=== PATIENT | male | born 2000 | race African-American/Black ===

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

== ENCOUNTER 2024-07-10 23:20 | Emergency (ER) | payer MEDICAID ==
[~2024-07-10] VITALS: Ht 160 cm; Wt 69.0 kg
[2024-07-10 23:41] VITALS: BP 131/69; PULSE 53; RESP 16; TEMP 36.9; O2SAT 100
== END 2024-07-11 04:07 | disposition left against medical advice (07) ==
LOC: ER 23:20
DX: M54.9 Dorsalgia, unspecified (principal); Z53.21 Procedure and treatment not carried out due to patient leaving prior to being seen by health care provider

== ENCOUNTER 2024-11-02 11:25 | Emergency (ER) | payer MEDICAID ==
[~2024-11-02] VITALS: Ht 172.7 cm; Wt 73.0 kg
[2024-11-02 11:31] VITALS: O2SAT 100
[2024-11-02] MEDS ORDERED: SODIUM CHLORIDE 0.9% 1,000 ML IV ONE (12:00)
[2024-11-02] MEDS: DIPHENHYDRAMINE 50MG/ML VIAL IM STA (12:44)
[2024-11-02] MEDS: ZIPRASIDONE MESYLATE 20MG/VIAL IM STA (12:51)
[2024-11-02 13:34] VITALS: BP 126/68; PULSE 96; RESP 18; TEMP 36.9; O2SAT 99
== END 2024-11-02 12:45 | disposition left against medical advice (07) ==
LOC: ER 11:25
DX: F91.8 Other conduct disorders (principal); R07.89 Other chest pain; F12.10 Cannabis abuse, uncomplicated; I10 Essential (primary) hypertension; E11.9 Type 2 diabetes mellitus without complications; Z90.49 Acquired absence of other specified parts of digestive tract
CPT/HCPCS: 99291; 96372; J1200; J3486; J7030